=== PATIENT | female | born 1970 ===

== ENCOUNTER 2017-07-13 06:52 | Day surgery (SDC) | payer OTHER ==
[2017-07-12 11:28] VITALS: BMI 25.4
[2017-07-13 07:44] VITALS: O2SAT 100
[2017-07-13] MEDS ORDERED: Lactated Ringer's 500 ML IV ONE ×2 (09:45)
--- NOTE | 2017-07-13 09:45 | CP.SDSHP ---
Same Day Surgery H & P - History Proposed Procedure: EGD Pre-Op Diagnosis: SEE NOTES - Previous Medical/Surgical History Pulmonary: Asthma Endocrine/Metabolic: Thyroid Disease Misc: Other Pain: 4.Moderate Pain - Allergies Allergies: Allergies SEASONAL Allergy (Uncoded 07/12/17 11:25) CONGESTION - Physical Exam General Appearance: N Vital Signs: Vital Signs 07/13/17 07:39 Temperature 97.3 F L Pulse Rate 82 Respiratory 20 Rate Blood Pressure 106/60 O2 Sat by Pulse 100 Oximetry Mental Status: Alert & Oriented x3 Neuro: WNL Heart: WNL Lungs: Other GI: Other - {Optional Preform as Required} Breast: WNL Abdomen: Other Rectal: Other Integument: WNL : WNL Ortho: WNL ENT: WNL - Impression Pt. Evaluated Today:Candidate for Anesthesia & Procedure: Yes - Date & Time Time: 09:44 Short Stay Discharge - Short Stay Discharge Admitting Diagnosis/Reason for Visit: DYSPEPSIA Disposition: HOME/ ROUTINE
[2017-07-13] MEDS ORDERED: Propofol 10 mg/ml Inj (20 ML) ONE (09:49)
[2017-07-13] MEDS ORDERED: Lidocaine Hydrochloride 5 ML INJ ONE (09:49)
[2017-07-13 10:19] VITALS: TEMP 96.9
[2017-07-13] MEDS ORDERED: Belladonna-Phenobarbital PO ONE ×2 (10:30→10:35)
[2017-07-13 10:43] VITALS: PULSE 90; RESP 13
[2017-07-13 10:58] VITALS: BP 111/59
== END 2017-07-13 12:09 | disposition home or self-care (01) ==
LOC: C.ENDO 06:52
PROVIDERS: ATTEND Specialist
DX: K31.7 Polyp of stomach and duodenum (principal); K21.0 Gastro-esophageal reflux disease with esophagitis; K29.00 Acute gastritis without bleeding
CPT/HCPCS: 43239; 84703; 88305; J2704; J7120

== ENCOUNTER 2017-07-15 06:14 | Day surgery (SDC) | payer OTHER ==
[2017-07-12 11:28] VITALS: BMI 25.4
--- NOTE | 2017-07-15 07:57 | CP.SDSHP ---
Same Day Surgery H & P - History Proposed Procedure: COLONSCOPY Pre-Op Diagnosis: SEE NOTES - Previous Medical/Surgical History Cardiac: Hypertension Endocrine/Metabolic: Other Misc: Other Pain: 4.Moderate Pain - Allergies Allergies: Allergies SEASONAL Allergy (Uncoded 07/12/17 11:25) CONGESTION - Physical Exam General Appearance: N Vital Signs: Vital Signs 07/15/17 06:34 Temperature 97.3 F L Pulse Rate 77 Respiratory 19 Rate Blood Pressure 100/59 L O2 Sat by Pulse 97 Oximetry Mental Status: Alert & Oriented x3 Neuro: WNL Heart: Other Lungs: WNL GI: Other - {Optional Preform as Required} Breast: WNL Abdomen: Other Rectal: Other Integument: WNL : WNL Ortho: WNL ENT: WNL - Impression Pt. Evaluated Today:Candidate for Anesthesia & Procedure: Yes - Date & Time Time: 07:57 Short Stay Discharge - Short Stay Discharge Admitting Diagnosis/Reason for Visit: ABNORMAL WEIGHT LOSS Disposition: HOME/ ROUTINE
[2017-07-15] MEDS ORDERED: Propofol 10 mg/ml Inj (20 ML) ONE (07:59)
[2017-07-15 08:23] VITALS: TEMP 97.4
[2017-07-15] MEDS ORDERED: Belladonna-Phenobarbital PO ONE (08:50)
[2017-07-15 08:57] VITALS: O2SAT 100
[2017-07-15 10:05] VITALS: BP 100/57; PULSE 72; RESP 12
== END 2017-07-15 10:03 | disposition home or self-care (01) ==
LOC: C.ENDO 06:14
PROVIDERS: ATTEND Specialist
DX: K58.9 Irritable bowel syndrome, unspecified (principal); R10.9 Unspecified abdominal pain; R19.7 Diarrhea, unspecified; R19.4 Change in bowel habit; E03.9 Hypothyroidism, unspecified; E78.5 Hyperlipidemia, unspecified; K64.4 Residual hemorrhoidal skin tags; K64.8 Other hemorrhoids; I10 Essential (primary) hypertension; J30.2 Other seasonal allergic rhinitis
CPT/HCPCS: 45380; 82948; 84703; 88305; 88313; 88342; J2704